=== PATIENT | female | born 1955 | race Caucasian/White ===

== ENCOUNTER 2019-11-22 06:52 | Outpatient (CLI) | payer MEDICARE, MEDICAID ==
[2019-11-22] VITALS (9 sets, daily range): BP systolic 87–128; BP diastolic 57–71
[~2019-11-22] VITALS: Ht 147.3 cm; Wt 91.6 kg
[2019-11-22 08:13] LABS: BASO # 0.1 x10^3/uL (0.0-0.2); BASO % 1 % (0-3); EOS # 0.1 x10^3/uL (0.0-0.7); EOS % 1 % (0-3); HEMATOCRIT 39.5 % (36.0-47.0); HEMOGLOBIN 13.1 g/dL (12.0-15.5); LYMPH # 1.9 x10^3/uL (1.0-4.8); LYMPH % 19 % (24-48); MEAN CORPUSCULAR HEMOGLOBIN 31 pg (25-35); MEAN CORPUSCULAR HGB CONC 33 g/dL (31-37); MEAN CORPUSCULAR VOLUME 92 fL (79-100); MONO # 0.8 x10^3/uL (0.0-1.1); MONO % 8 % (0-9); NEUT # 7.3 x10^3/uL (1.8-7.7); NEUT % 72 % (31-73); PLATELET COUNT 251 x10^3/uL (140-400); RED BLOOD COUNT 4.29 x10^6/uL (3.50-5.40); RED CELL DISTRIBUTION WIDTH 12.8 % (11.5-14.5); WHITE BLOOD COUNT 10.2 x10^3/uL (4.0-11.0)
[2019-11-22] MEDS ORDERED: HEPARIN PF 500 UNIT/5 ML DISP.SYRIN. ONE (08:16)
[2019-11-22] MEDS ORDERED: LIDOCAINE 1%/EPI 1:100,000 20 ML VIAL. ONE (08:16)
[2019-11-22] MEDS ORDERED: ALBU2.5V8 IH (08:21)
[2019-11-22 08:24] LABS: PROTHROMBIN TIME PATIENT 12.3 SEC (11.7-14.0)
[2019-11-22] MEDS ORDERED: fentaNYL PF VIAL 100 MCG/2 ML VIAL ONE (08:24)
[2019-11-22] MEDS ORDERED: MIDAZOLAM HCL/PF 2 MG/2 ML VIAL. ONE (08:24)
[2019-11-22 08:27] LABS: ALBUMIN 3.4 g/dL (3.4-5.0); CALCIUM 9.1 mg/dL (8.5-10.1); CREATININE 1.7 mg/dL (0.6-1.0); GFR 30.5; MAGNESIUM 2.3 mg/dL (1.8-2.4); PHOSPHORUS 4.6 mg/dL (2.6-4.7); POTASSIUM 4.3 mmol/L (3.5-5.1)
[2019-11-22] MEDS ORDERED: VANCOMYCIN 1GM IVPB FOR OMNI 250 ML IV ONE (08:45)
[2019-11-22] MEDS ORDERED: MONT10TA7 PO (08:48)
[2019-11-22] MEDS ORDERED: METO-239 PO (08:48)
[2019-11-22] MEDS ORDERED: CHOL40003 PO (08:48)
[2019-11-22] MEDS ORDERED: OMEP20TA63 PO (08:48)
[2019-11-22] MEDS ORDERED: TRAZ300T2 PO (08:48)
[2019-11-22] MEDS ORDERED: ASPI81TA59 PO (08:48)
[2019-11-22] MEDS ORDERED: FOLI20CA PO (08:48)
[2019-11-22] MEDS ORDERED: CRESTOR40 MG PO (08:48)
[2019-11-22] MEDS ORDERED: OXYC5TAB2 PO (08:48)
[2019-11-22] MEDS ORDERED: MILN50TA PO (08:48)
[2019-11-22] MEDS ORDERED: SUCR1TAB35 PO (08:48)
[2019-11-22] MEDS ORDERED: FAMC125T3 PO (08:48)
[2019-11-22] MEDS ORDERED: MECL12.573 PO (08:48)
[2019-11-22] MEDS ORDERED: LEVE500T56 PO (08:48)
[2019-11-22] MEDS ORDERED: AMLO5TAB4 PO (08:48)
[2019-11-22] MEDS ORDERED: METO-247 PO (08:48)
[2019-11-22] MEDS ORDERED: NITR0.4T24 SL (08:48)
[2019-11-22] MEDS ORDERED: BUDE10.22 IH (08:48)
[2019-11-22] MEDS ORDERED: insulin pump SQ (08:48)
[2019-11-22] MEDS ORDERED: OMEG1CAP27 PO (08:48)
[2019-11-22] MEDS ORDERED: EZET10TA20 PO (08:48)
[2019-11-22] MEDS ORDERED: VANCOMYCIN 1GM IVPB FOR OMNI 250 ML ONE (09:38)
[2019-11-22] MEDS ORDERED: IODIXANOL 320 MG/ML 50ML VIAL. ONE (10:04)
[2019-11-22] MEDS ORDERED: IODIXANOL 320 MG/ML 100 ML VIAL. IART ONE (10:30)
[2019-11-22] MEDS ORDERED: HEPARIN PF 500 UNIT/5 ML DISP.SYRIN. IVP ONE (10:30)
[2019-11-22] MEDS ORDERED: LIDOCAINE 1%/EPI 1:100,000 20 ML VIAL. SQ ONE (10:30)
[2019-11-22] MEDS ORDERED: fentaNYL PF VIAL 100 MCG/2 ML VIAL IV ONE (10:30)
[2019-11-22] MEDS ORDERED: MIDAZOLAM HCL/PF 2 MG/2 ML VIAL. IV ONE (10:30)
--- NOTE | 2019-11-22 10:39 | PDOC ---
MODERATE SEDATION ASSESSMENT RISKS/ALTERNATIVES Risks/Alternatives Risks and alternatives of this type of sedation and procedure discussed with: RISK/ALTERNATIVES: Patient H & P ON CHART H & P H & P on chart and reviewed for co-morbid conditions and appropriate labs. H&P ON CHART: Yes STATUS PREG STATUS ASSESSED: Yes MEDS/ALLERGIES REVIEWED Meds/Allergies Reviewed Medications and Allergies including time and route of recently administered narcotics and sedatives. MEDS/ALLERGIES REVIEWED: Yes ASA RATING ASA RATING: II AIRWAY ASSESSMENT Airway Assessment Airway patency, oral function limitations, presence of caps, crowns, dentures, partials, and ability to extend neck assessed. AIRWAY ASSESSMENT: Yes MALLAMPATI SCORE MALLAMPATI SCORE: II PRE-SEDATION ASSESSMENT PRE-SEDATION ASSESSMENT: Yes PITER SAMUELS MD Nov 22, 2019 10:39
--- NOTE | 2019-11-22 10:41 | PDOC ---
BRIEF OPERATIVE NOTE Pre-Op Diagnosis Port malfunction Post-Op Diagnosis same Procedure Performed Port removal and placement of new port through new venous access Surgeon Reshma Anesthesia Type: Conscious Sedation Findings port unable to aspirate. Successful removal and placement of new powerport via the same pocket but a new venous access. Pocket was reconstructed with suture and adiposectomy to better accomodate the new port and improve access. Complications No immediate PITER SAMUELS MD Nov 22, 2019 10:41
--- NOTE | 2019-11-22 13:11 | NUR ---
Discharge Note: TANYA OLIVAREZ Discharge instructions and discharge home medications reviewed with Family Member and a copy given. All questions have been answered and understanding verbalized. The following instructions and handouts were given: Moderate sedation and ag cath placement. Discontinued lines and drains: right hand PIV, dressing clean dry intact. Patient discharged to home with sister via wheelchair to private vehicle.
[2019-11-22 14:13] LABS: CREATININE,RANDOM URINE 92.6 mg/dL (Not Establ.)
--- NOTE | 2019-11-23 08:45 | RAD ---
Procedure: Fluoroscopic guided Port-A-Cath removal, and new Port-A-Cath placement through new venous access Clinical Indication: Adult female with malfunctioning Port-A-Cath Sedation: Conscious sedation was administered with a total intraprocedural [id number] time of 43 minutes. The patient was monitored by a qualified independent observer throughout the time of sedation. Please refer to the medical record for exact doses of medications utilized to achieve moderate sedation. Antibiotics: Antibiotic was administered intravenously within 1 hour of the procedure start time. Exposure: Kerma-Area Product: 18.9 Gycm2 Contrast: None Sterility: All elements of maximal sterile barrier technique including the use of a cap, mask, sterile gown, sterile gloves, large sterile sheet, appropriate hand hygiene, and 2% chlorhexidine for cutaneous antisepsis (or acceptable alternative antiseptic per current guidelines) were followed for this procedure. Consent: The procedure was explained in its entirety to the patient or the patients designated area representative by a member of the treatment team, including a discussion of the risks, benefits and commonly accepted alternatives to the procedure, as well as the expected consequences of no therapy whatsoever. Discussion of the risks included, but was not limited to, those that are most frequent and those that are rare but possibly severe or life-threatening, as well as the possibility of unforeseen complications. Technique and Findings: Following informed consent, the patient was prepped and draped in usual sterile fashion. Preliminary fluoroscopic spot view of the right chest revealed an intact right IJ Port-A-Cath which was rotated slightly medially. This port was then accessed, and failed to aspirate. 1% lidocaine was used to achieve local anesthesia over the port site, and a small dermatotomy was made. Blunt dissection techniques were used to free the port from the pocket. The entirety of the port was then removed and one piece and hemostasis was achieved with manual compression. Ultrasound interrogation of the right neck was then performed demonstrating patency and compressibility of the right internal jugular vein. A hardcopy ultrasound image was recorded as a 21-gauge micropuncture needle was used to gain access to this vein. The needle was exchanged over a wire for a peel-away sheath. The existing pocket was found to be wide and deep. A 3-0 Ethilon suture was used to reconstruct the pocket by closing the medial aspect of the pocket through anchoring the subcutaneous tissues to the pectoral fascia into separate locations. The pocket was then extended slightly caudally to snugly accommodate the new port and superficial position ideal for percutaneous access. The new port was then tunneled subcutaneously towards the neck dermatotomy and deployed under fluoroscopic guidance through the peel-away sheath such that the distal tip resided in the mid right atrium. The new port was then accessed and was found to flush and aspirate with ease. The port was then flushed and packed with heparin. The pocket was then irrigated with vancomycin impregnated sterile saline then closed with deep interrupted and running subcuticular 4-0 Vicryl suture. The neck dermatotomy was closed with Dermabond. Complications: No immediate Impression: 1. Fluoroscopic guided removal of malfunctioning port as described. 2. Chest wall port pocket revision to better commonly the new port as described. 3. Successful placement of a new right IJ Port-A-Cath which demonstrates excellent function and is suitable for use.
== END 2019-11-22 13:00 | disposition home or self-care (01) ==
LOC: INTRAD 06:52
PROVIDERS: ATTEND Internal Medicine Nephrology
DX: T82.898A Other specified complication of vascular prosthetic devices, implants and grafts, initial encounter (principal); E11.21 Type 2 diabetes mellitus with diabetic nephropathy; I12.9 Hypertensive chronic kidney disease with stage 1 through stage 4 chronic kidney disease, or unspecified chronic kidney disease; N18.3 Chronic kidney disease, stage 3 (moderate); D63.1 Anemia in chronic kidney disease; E66.9 Obesity, unspecified; Z68.41 Body mass index [BMI] 40.0-44.9, adult; Z79.899 Other long term (current) drug therapy; Z79.01 Long term (current) use of anticoagulants; Y83.8 Other surgical procedures as the cause of abnormal reaction of the patient, or of later complication, without mention of misadventure at the time of the procedure; Y92.89 Other specified places as the place of occurrence of the external cause; Z79.84 Long term (current) use of oral hypoglycemic drugs
CPT/HCPCS: 36415; 36561; 36590; 75820; 76937; 77001; 80069; 82306; 82570; 83735; 84156; 85025; 85610; 99152; 99153; C1751; C1769; C1892; J2250; J3010; J3370; J3490; Q9967